=== PATIENT | female | born 1990 ===

== ENCOUNTER 2017-10-27 01:54 | Inpatient (IN) | payer OTHER ==
[~2017-10-27] VITALS: Ht 160 cm; Wt 65.8 kg
[2017-10-27] MEDS ORDERED: PRENATAL 19 TA1 EACH PO (02:04)
[2017-10-27] MEDS ORDERED: FOLIC ACID1 MG PO (02:04)
== END 2017-10-29 15:12 | disposition home or self-care (01) | DRG 775 ==
LOC: LDR 01:54 → OB/GYN 08:52
PROC: 10E0XZZ Delivery of Products of Conception, External Approach (ICD-10-PCS; principal; 2017-10-27)
PROC: 4A1HXCZ Monitoring of Products of Conception, Cardiac Rate, External Approach (ICD-10-PCS; 2017-10-27)
PROC: 4A033R1 Measurement of Arterial Saturation, Peripheral, Percutaneous Approach (ICD-10-PCS; 2017-10-27)
DX: O80 Encounter for full-term uncomplicated delivery (principal); Z37.0 Single live birth; Z3A.39 39 weeks gestation of pregnancy